=== PATIENT | male | born 1955 | race Caucasian/White ===

== ENCOUNTER 2018-10-06 08:24 | Outpatient (CLI) | payer MEDICARE, OTHER, SELFPAY ==
[2018-10-06 10:34] LABS: ALT 31 U/L (12-78); AST 23 U/L (15-37); Alkaline Phosphatase 59 U/L (46-116); Anion Gap 11.2 mmol/L (3-11); BUN 28 mg/dL (7-18); Bilirubin, Total 1.3 mg/dL (0.2-1.0); CO2 24.8 mmol/L (21.0-32.0); CREATININE 0.86 mg/dL (0.70-1.30); Calcium 8.9 mg/dL (8.5-10.1); Calculated LDL 96 mg/dL; Chloride 106 mmol/L (98-107); Cholesterol 191 mg/dL (50-200); Glucose 101 mg/dL (70-100); HDL Cholesterol 86 mg/dL (40-60); Potassium 4.1 mmol/L (3.5-5.1); Sodium 142 mmol/L (136-145); TSH (W/Ref FT4) 2.14 uIU/mL (0.358-3.74); Total Protein 6.8 g/dL (6.4-8.2); Triglyceride 45 mg/dL (30-150)
== END 2018-10-06 08:44 ==
PROVIDERS: PCP Family Medicine; Visit Provider Family Medicine
DX: E03.9 Hypothyroidism, unspecified (principal); E78.5 Hyperlipidemia, unspecified; I10 Essential (primary) hypertension
CPT/HCPCS: 36415; 80053; 80061; 83721; 84443

== ENCOUNTER 2019-11-08 02:39 | Outpatient (CLI) | payer MEDICARE, BC, SELFPAY ==
[2019-11-08 09:44] LABS: ALT 24 U/L (16-63); AST 17 U/L (15-37); Albumin 4.3 g/dL (3.4-5.0); Alkaline Phosphatase 50 U/L (46-116); Anion Gap 9.5 mmol/L (3-11); BUN 19 mg/dL (7-18); Bilirubin, Total 0.9 mg/dL (0.2-1.0); CO2 27.5 mmol/L (21.0-32.0); CREATININE 0.94 mg/dL (0.70-1.30); Calcium 9.3 mg/dL (8.5-10.1); Calculated LDL 116 mg/dL (<100); Chloride 105 mmol/L (98-107); Cholesterol 228 mg/dL (<200); Glucose 98 mg/dL (74-106); HDL Cholesterol 96 mg/dL (40-60); Potassium 4.4 mmol/L (3.5-5.1); Sodium 142 mmol/L (136-145); TSH (W/Ref FT4) 1.86 uIU/mL (0.36-3.74); Total Protein 7.2 g/dL (6.4-8.2); Triglyceride 84 mg/dL (<150)
[2019-11-09 09:04] LABS: PSA, Diagnostic 0.8 ng/mL (0.0-4.5)
== END 2019-11-08 02:59 ==
PROVIDERS: PCP Family Medicine; Visit Provider Family Medicine
DX: E03.9 Hypothyroidism, unspecified (principal); I10 Essential (primary) hypertension; G47.30 Sleep apnea, unspecified; N40.0 Benign prostatic hyperplasia without lower urinary tract symptoms
CPT/HCPCS: 36415; 80053; 80061; 84153; 84443

== ENCOUNTER 2020-12-11 02:36 | Outpatient (CLI) | payer MEDICARE, BC, SELFPAY ==
[2020-12-11 13:02] LABS: ALT 27 U/L (16-63); AST 23 U/L (15-37); Albumin 4.1 g/dL (3.4-5.0); Alkaline Phosphatase 62 U/L (46-116); Anion Gap 11.4 mmol/L (3-11); BUN 20 mg/dL (7-18); Bilirubin, Total 0.8 mg/dL (0.2-1.0); CO2 24.6 mmol/L (21.0-32.0); CREATININE 1.1 mg/dL (0.70-1.30); Calcium 8.7 mg/dL (8.5-10.1); Calculated LDL 110 mg/dL (<100); Chloride 106 mmol/L (98-107); Cholesterol 194 mg/dL (<200); Glucose 98 mg/dL (74-106); HDL Cholesterol 75 mg/dL (40-60); Potassium 4.5 mmol/L (3.5-5.1); Sodium 142 mmol/L (136-145); TSH (W/Ref FT4) 1.88 uIU/mL (0.36-3.74); Triglyceride 49 mg/dL (<150)
== END 2020-12-11 02:37 | disposition home or self-care (01) ==
LOC: LOS 02:37
PROVIDERS: PCP Family Medicine; Visit Provider Family Medicine
DX: G47.30 Sleep apnea, unspecified; E03.9 Hypothyroidism, unspecified; E78.5 Hyperlipidemia, unspecified; I10 Essential (primary) hypertension
CPT/HCPCS: 36415; 80053; 80061; 84443

== ENCOUNTER 2021-06-17 11:00 | Outpatient (CLI) | payer MEDICARE, BC, SELFPAY ==
--- NOTE | 2021-06-17 08:45 | DI.RAD_ITS ---
Exam(s) XR KNEE LT 3V AP,LAT,ROÍCO EXAM: XR KNEE LT 3V AP,LAT,ROCÍO CLINICAL HISTORY: l knee pain, M25.562. TECHNIQUE: 2D digital imaging was performed. Three views. COMPARISON: No exams were available for comparison FINDINGS: BONES: No acute fracture is present. No bony destructive lesion is seen. JOINTS: The knee is normally aligned. No joint effusion is seen. SOFT TISSUE: Normal. IMPRESSION: Normal radiographs of the left knee. DATA REPOSITORY: RADIATION DOSE DELIVERED:
--- NOTE | 2021-06-17 08:45 | DI.RAD_ITS ---
Exam(s) XR ANKLE RT 2V EXAM: XR ANKLE RT 2V CLINICAL HISTORY: r knee pain, M25.571; fell 45 years ago. TECHNIQUE: 2D digital imaging was performed. Two views. COMPARISON: No exams were available for comparison FINDINGS: BONES: No acute fracture is present. No bony destructive lesion is seen. Mild spurring at the distal tibia and malleoli. Cystic areas at the medial and lateral aspects of the talar dome. No collapse of the talar dome. JOINTS: The ankle mortise is normally aligned. SOFT TISSUE: Normal. IMPRESSION: Mild degenerative changes. Cystic areas in talar dome could be due to degenerative or related to pre vious trauma. DATA REPOSITORY: RADIATION DOSE DELIVERED:
== END 2021-06-17 11:20 ==
PROVIDERS: PCP Family Medicine; Visit Provider Family Medicine
DX: M25.562 Pain in left knee (principal); M25.571 Pain in right ankle and joints of right foot; M77.51 Other enthesopathy of right foot and ankle; M25.561 Pain in right knee
CPT/HCPCS: 73562; 73600

== ENCOUNTER → 2021-09-03 01:06 | Outpatient (CLI) | payer MEDICARE, BC, SELFPAY ==
--- NOTE | 2021-09-03 08:15 | DI.US_ITS ---
Exam(s) US LOWER EXTREMITY VENOUS RT EXAM: US LOWER EXTREMITY VENOUS RT CLINICAL HISTORY: Right calf pain and discoloration,m79.661 TECHNIQUE: Grayscale, color, and doppler imaging of the deep venous system of the lower extremity w as performed. COMPARISON: No exams were available for comparison FINDINGS: This is a positive-abnormal study. There is no DVT at and above the knee. Popliteal vein is clear. However, there is intraluminal thrombus evident in both posterior tibial veins in their proximal aspe cts just below the level of the knee. In addition, there is superficial thrombophlebitis in the mid-distal greater saphenous vein below the level of the knee. This measures approximately 15 cm length. IMPRESSION: 1. Positive study for DVT in the low right calf, as described above. There is also superficial phle bitis in the mid-distal greater saphenous vein below the knee level. This clot is 15 cm in length wi thin the saphenous. DATA REPOSITORY:
== END ==
PROVIDERS: PCP Family Medicine; Visit Provider Nurse Practitioner Family
DX: I80.01 Phlebitis and thrombophlebitis of superficial vessels of right lower extremity (principal); L98.8 Other specified disorders of the skin and subcutaneous tissue
CPT/HCPCS: 93971

== ENCOUNTER 2021-12-15 03:23 | Outpatient (CLI) | payer MEDICARE, BC, SELFPAY ==
[2021-12-15 12:13] LABS: HCT 35.1 % (40.0-50.0); HGB 10.8 g/dL (13.5-17.5); MCH 25.2 pg (27.0-33.0); MCHC 30.8 % (32.0-36.0); MCV 82 fL (80-95); MPV 10.9 fL (8.0-11.0); Platelet Count 266 10^3/uL (130-400); RBC 4.28 10^6/uL (4.36-5.78); RDW 18.8 % (11.8-14.1); RDW-SD 56.6 fL; WBC 4.88 10^3/uL (4.4-10.8)
[2021-12-15 12:32] LABS: ALT 24 U/L (16-63); AST 19 U/L (15-37); Albumin 3.8 g/dL (3.4-5.0); Alkaline Phosphatase 57 U/L (46-116); Anion Gap 8.3 mmol/L (3-11); BUN 16 mg/dL (7-18); Bilirubin, Total 0.7 mg/dL (0.2-1.0); CO2 27.7 mmol/L (21.0-32.0); CREATININE 1.1 mg/dL (0.70-1.30); Calculated LDL 99 mg/dL (<100); Chloride 106 mmol/L (98-107); Cholesterol 183 mg/dL (<200); Estimated GFR 73.12 (mL/min/1.73m2); Glucose 93 mg/dL (74-106); HDL Cholesterol 74 mg/dL (40-60); Potassium 4.3 mmol/L (3.5-5.1); Sodium 142 mmol/L (136-145); TSH (W/Ref FT4) 2.65 uIU/mL (0.36-3.74); Total Protein 7.2 g/dL (6.4-8.2); Triglyceride 50 mg/dL (<150)
[2021-12-15 18:52] LABS: Ferritin 15 ng/mL (26-388)
[2021-12-15 18:53] LABS: Iron 32 ug/dL (65-175)
[2021-12-15 20:02] LABS: Lab Add On Test DONE
== END 2021-12-15 03:24 | disposition home or self-care (01) ==
LOC: LOS 03:23
PROVIDERS: PCP Family Medicine; Visit Provider Family Medicine
DX: E03.9 Hypothyroidism, unspecified (principal); E78.5 Hyperlipidemia, unspecified; I10 Essential (primary) hypertension; D64.9 Anemia, unspecified
CPT/HCPCS: 36415; 80053; 80061; 85027; 82728; 83540; 84443

== ENCOUNTER 2022-03-10 02:07 | Outpatient (CLI) | payer MEDICARE, BC, SELFPAY ==
[2022-03-10 09:17] LABS: HGB 14.5 g/dL (13.5-17.5); MCH 30.1 pg (27.0-33.0); MCHC 33.7 % (32.0-36.0); MCV 89 fL (80-95); Platelet Count 241 10^3/uL (130-400); RBC 4.82 10^6/uL (4.36-5.78); RDW 15.8 % (11.8-14.1); RDW-SD 52.3 fL; WBC 6.45 10^3/uL (4.4-10.8)
[2022-03-10 10:10] LABS: Ferritin 41 ng/mL (26-388)
[2022-03-10 10:36] LABS: Iron 97 ug/dL (65-175)
[2022-03-10 19:15] LABS: PSA, Diagnostic 0.6 ng/mL (<=4.5)
== END 2022-03-10 02:08 | disposition home or self-care (01) ==
LOC: LBO 02:08
PROVIDERS: PCP Family Medicine; Visit Provider Family Medicine
DX: D64.9 Anemia, unspecified (principal); N40.0 Benign prostatic hyperplasia without lower urinary tract symptoms
CPT/HCPCS: 36415; 85027; 82728; 83540; 84153

== ENCOUNTER 2022-10-08 11:07 | Outpatient (CLI) | payer MEDICARE, BC, SELFPAY ==
[2022-10-09 11:45] LABS: Lyme Ab w Rflx to Lyme Confirm Negative (Negative)
[2022-10-11 15:40] LABS: Anaplasma phagocytophilum Negative (Negative); B. miyamotoi PCR Negative (Negative); Babesia divergens/MO-1 Negative (Negative); Babesia duncani Negative (Negative); Babesia microti Negative (Negative); Ehrlichia chaffeensis Negative (Negative); Ehrlichia ewingii/canis Negative (Negative); Ehrlichia muris eauclairensis Negative (Negative)
== END 2022-10-08 11:08 | disposition home or self-care (01) ==
LOC: LOS 11:08
PROVIDERS: PCP Family Medicine; Referring Provider Nurse Practitioner Family; Visit Provider Nurse Practitioner Family
DX: W57.XXXA Bitten or stung by nonvenomous insect and other nonvenomous arthropods, initial encounter; S20.361A Insect bite (nonvenomous) of right front wall of thorax, initial encounter
CPT/HCPCS: 36415; 87798; 86618

== ENCOUNTER 2022-12-07 11:32 | Outpatient (CLI) | payer MEDICARE, BC, SELFPAY ==
[2022-12-07 12:17] LABS: HCT 38.5 % (40.0-50.0); HGB 12.8 g/dL (13.5-17.5); MCHC 33.2 % (32.0-36.0); MCV 87 fL (80-95); MPV 10.3 fL (8.0-11.0); Platelet Count 280 10^3/uL (130-400); RBC 4.42 10^6/uL (4.36-5.78); RDW 14.1 % (11.8-14.1); RDW-SD 45.1 fL
[2022-12-07 13:11] LABS: ALT 24 U/L (16-63); AST 20 U/L (15-37); Albumin 4.2 g/dL (3.4-5.0); Alkaline Phosphatase 58 U/L (46-116); BUN 16 mg/dL (7-18); Bilirubin, Total 1.4 mg/dL (0.2-1.0); CREATININE 1.1 mg/dL (0.70-1.30); Calcium 9.6 mg/dL (8.5-10.1); Calculated LDL 99 mg/dL (<100); Chloride 101 mmol/L (98-107); Cholesterol 215 mg/dL (<200); Estimated GFR 72.67 (mL/min/1.73m2); Glucose 106 mg/dL (74-106); HDL Cholesterol 109 mg/dL (40-60); Potassium 4.4 mmol/L (3.5-5.1); Sodium 138 mmol/L (136-145); TSH (W/Ref FT4) 2.69 uIU/mL (0.36-3.74); Total Protein 7.7 g/dL (6.4-8.2); Triglyceride 39 mg/dL (<150)
== END 2022-12-07 11:33 | disposition home or self-care (01) ==
LOC: LOS 11:33
PROVIDERS: PCP Family Medicine; Visit Provider Family Medicine
DX: D64.9 Anemia, unspecified (principal); I10 Essential (primary) hypertension; E03.9 Hypothyroidism, unspecified; E78.5 Hyperlipidemia, unspecified
CPT/HCPCS: 36415; 80053; 80061; 85027; 84443

== ENCOUNTER 2023-05-19 01:34 | Outpatient (CLI) | payer MEDICARE, BC, SELFPAY ==
[2023-05-19 10:36] LABS: HCT 37.1 % (40.0-50.0); HGB 11.9 g/dL (13.5-17.5); MCH 26.3 pg (27.0-33.0); MCHC 32.1 % (32.0-36.0); MCV 82 fL (80-95); MPV 9.8 fL (8.0-11.0); Platelet Count 246 10^3/uL (130-400); RBC 4.52 10^6/uL (4.36-5.78); RDW 16.2 % (11.8-14.1); RDW-SD 48.8 fL; WBC 5.09 10^3/uL (4.4-10.8)
[2023-05-19 11:36] LABS: Iron 42 ug/dL (65-175)
[2023-05-19 11:50] LABS: Ferritin 13 ng/mL (26-388)
== END 2023-05-19 01:35 | disposition home or self-care (01) ==
LOC: LBO 01:35
PROVIDERS: PCP Family Medicine; Visit Provider Family Medicine
DX: D64.9 Anemia, unspecified (principal)
CPT/HCPCS: 36415; 85027; 82728; 83540

== ENCOUNTER 2023-09-15 04:46 | Outpatient (CLI) | payer MEDICARE, BC, SELFPAY ==
[2023-09-15 10:23] LABS: HCT 41.5 % (40.0-50.0); HGB 14.6 g/dL (13.5-17.5); MCH 31.1 pg (27.0-33.0); MCHC 35.2 % (32.0-36.0); MCV 89 fL (80-95); MPV 10.4 fL (8.0-11.0); Platelet Count 206 10^3/uL (130-400); RBC 4.69 10^6/uL (4.36-5.78); RDW 14.3 % (11.8-14.1); WBC 5.18 10^3/uL (4.4-10.8)
[2023-09-15 12:11] LABS: Ferritin 40 ng/mL (26-388)
[2023-09-15 12:53] LABS: Iron 116 ug/dL (65-175)
== END 2023-09-15 04:47 | disposition home or self-care (01) ==
LOC: LBO 04:46
PROVIDERS: PCP Family Medicine; Visit Provider Family Medicine
DX: D64.9 Anemia, unspecified (principal)
CPT/HCPCS: 36415; 85027; 82728; 83540

== ENCOUNTER 2023-11-17 02:31 | Outpatient (CLI) | payer MEDICARE, BC, SELFPAY ==
[2023-11-17 08:45] LABS: HCT 44.3 % (40.0-50.0); HGB 14.9 g/dL (13.5-17.5); MCH 31.6 pg (27.0-33.0); MCHC 33.6 % (32.0-36.0); MCV 94 fL (80-95); Platelet Count 189 10^3/uL (130-400); RBC 4.71 10^6/uL (4.36-5.78); RDW 13.2 % (11.8-14.1); RDW-SD 45.2 fL; WBC 4.73 10^3/uL (4.4-10.8)
[2023-11-17 09:41] LABS: Iron 98 ug/dL (65-175)
[2023-11-17 09:48] LABS: ALT 32 U/L (16-63); AST 22 U/L (15-37); Alkaline Phosphatase 61 U/L (46-116); Anion Gap 7.2 mmol/L (3-11); BUN 17 mg/dL (7-18); Bilirubin, Total 1.13 mg/dL (0.2-1.0); CO2 29.8 mmol/L (21.0-32.0); CREATININE 0.9 mg/dL (0.70-1.30); Calcium 9.2 mg/dL (8.5-10.1); Calculated LDL 107 mg/dL (<100); Chloride 105 mmol/L (98-107); Cholesterol 207 mg/dL (<200); Estimated GFR 91.88 (mL/min/1.73m2); Ferritin 54 ng/mL (26-388); Glucose 112 mg/dL (74-106); HDL Cholesterol 91 mg/dL (40-60); Potassium 4.4 mmol/L (3.5-5.1); Sodium 142 mmol/L (136-145); Total Protein 7.4 g/dL (6.4-8.2); Triglyceride 45 mg/dL (<150)
== END 2023-11-17 02:32 | disposition home or self-care (01) ==
PROVIDERS: PCP Family Medicine; Visit Provider Family Medicine
DX: D64.9 Anemia, unspecified (principal); I10 Essential (primary) hypertension; E03.9 Hypothyroidism, unspecified
CPT/HCPCS: 36415; 80053; 80061; 85027; 82728; 83540; 84439; 84443

== ENCOUNTER 2023-12-16 09:50 | Outpatient (CLI) | payer MEDICARE, BC, SELFPAY ==
[2023-12-16 21:02] LABS: PSA, Screening 2.2 ng/mL (<=6.5)
[2023-12-16 21:40] LABS: Hepatitis C Ab w Rflx HCV PCR Negative (Negative)
== END 2023-12-16 09:51 | disposition home or self-care (01) ==
LOC: LOS 09:51
PROVIDERS: PCP Family Medicine; Referring Provider Family Medicine; Visit Provider Family Medicine
DX: Z11.59 Encounter for screening for other viral diseases (principal); Z12.5 Encounter for screening for malignant neoplasm of prostate
CPT/HCPCS: 36415; 84153; 86803

== ENCOUNTER 2024-06-15 11:07 | Outpatient (REF) | payer MEDICARE, BC, SELFPAY ==
--- NOTE | 2024-06-15 10:30 | SKI_PTH ---
PATIENT: Tom Martinez LOC: [facility]#:[id number] AGE/SX: 68/M ROOM: RE06/15/[address]: Aide Leija MD, DC : 1955 BED: DIS: 06/15/2024 SPEC #: [id number] RECD: 06/15/24 12:46 STATUS: MARIUM REQ #: [id number] ARLET: 06/15/24 10:[address]: Aide Leija DEPT: Surgical Specimen RECD BY: Negrita Walker Tissues: 1 - SKIN BIOPSY(SHAVE/PUNCH) Procedures: SKIN LEVEL 4 Comments: [id number]
== END 2024-06-15 11:08 | disposition home or self-care (01) ==
LOC: NCHCN 11:07
PROVIDERS: PCP Family Medicine; Visit Provider Family Medicine
DX: C43.62 Malignant melanoma of left upper limb, including shoulder (principal)
CPT/HCPCS: 88305

== ENCOUNTER → 2024-06-21 09:18 | Outpatient (BNVA) | payer MEDICARE, BC, SELFPAY | PROVIDERS: PCP Family Medicine; Referring Provider Family Medicine; Visit Provider Student in an Organized Health Care Education/Training Program | DX: C43.9 Malignant melanoma of skin, unspecified (principal) | CPT/HCPCS: 99215 ==

== ENCOUNTER 2024-07-12 06:27 | Day surgery (SDC) | payer MEDICARE, BC, SELFPAY ==
--- NOTE | 2024-07-11 21:28 | W.ANESPRE ---
General Info Height: 5 ft 5 in Weight: 71.384 kg Body Mass Index (BMI): 26.2 Surgical Procedure: Operation Date: 07/12/24 10:55 Proposed Procedure Side Surgeon p Upper Extremity Excision of Melanoma w/Sentinal Lymph Node Biopsy Left Javier Pisano MD s Excision Lesion Upper Chest Left Javier Pisano MD Meds Allergies and Home Medications Allergies Allergy/AdvReac Type Severity Reaction Status Date / Time No Known Drug Allergies Allergy None Verified 07/12/24 06:56 Home Medication ?Medication ?Instructions ?Recorded amlodipine 5 mg tablet 5 mg PO DAILY #90 tab-caps 12/16/23 atorvastatin 40 mg tablet (Lipitor) 40 mg PO HS #90 tab-caps 12/16/23 levothyroxine 50 mcg tablet 50 mcg PO DAILY #90 tab-caps 12/16/23 Current Visit Medications: Current Medications Generic Name Dose Route Start Last Admin Trade Name Freq PRN Reason Stop Dose Admin Ringer's Solution 1,000 mls @ 80 mls/hr 07/12/24 06:00 IV 07/12/24 23:59 INFUSION TAYA IV Miscellaneous Supplies 1 each 07/12/24 06:00 Iv Access IV 07/12/24 23:59 DIRECTED TAYA Sodium Chloride 0 ml 07/12/24 06:00 Normal Saline Flush 10 Ml Syr IV 07/12/24 23:59 PRN PRN Sodium Chloride 0 ml 07/12/24 06:00 Normal Saline 10 Ml Vial IJ 07/12/24 23:59 DIRECTED PRN Sterile Water 0 ml 07/12/24 06:00 Water,Injection,Sterile 10 Ml Vial IJ 07/12/24 23:59 DIRECTED PRN PFSH Active Problems Active Problems: Problem Status Onset Code Melanoma Acute C43.9 Bilateral sensorineural hearing loss Acute H90.3 Anemia Chronic D64.9 Right ankle pain Acute M25.571 Left knee pain Acute M25.562 Annual physical exam Acute 08/23/14 Z00.00 Cervical pain Chronic 07/26/17 M54.2 Essential hypertension Chronic 01/12/17 I10 Hyperlipidemia Chronic 05/31/12 E78.5 Hypothyroidism Chronic 08/10/13 E03.9 Organic sleep apnea, 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 states it disappeared and is no longer an issue Pigmented skin lesion suspicious for malignant neoplasm (10/25/17) Organic sleep apnea, unspecified Hypothyroidism Essential hypertension Surgical History Surgical History Colonoscopy - MAC (02/03/17) Tobacco Smoking/Tobacco Use Status: Never Passive smoking exposure: No Second hand exposure: Yes Alcohol Alcohol Intake: current Alcohol intake frequency: a few times a week Alcohol type: beer Substance Use Substance use: Never Substance use type: does not use Vital Signs and Lab Results Vital Signs Most Recent Vital Signs in EMR: Temp Pulse Resp BP Pulse Ox 36.7 C 66 16 134/86 96 07/12/24 06:49 07/12/24 06:49 07/12/24 06:49 07/12/24 06:49 07/12/24 06:49 Lab Results Blood Type / Crossmatch: No Data to Display Complete Blood Count: No Data to Display Complete Metabolic Panel: No Data to Display Liver Function Panel: No Data to Display Coagulation Panel: No Data to Display Cardiac Panel: No Data to Display Arterial Blood Gas: No Data to Display Venous Blood Gas: No Data to Display Pancreas Panel: No Data to Display Thyroid Panel: No Data to Display Infectious Disease: No Data to Display Blood Cultures: No Data to Display Toxicology Panel: No Data to Display Anesthesia Assessment and Plan Anesthesia History Personal History: No History of Anesthesia Complications Family History: No Family History of Anesthesia Complications Implantable Cardiac Device Does patient have a Pacemaker or an ICD?: No Anesthesia Plan Resuscitation Status: Full Code Anesthesia Technique: General Anesthesia Airway Planned: LMA Monitors Used: Standard Monitors Preoperative Comments:: 68 yo male for lesion excision. Sig PMHx: HTN (amlodipine), KANDI, hypothyroid (on replacement). never smoker, occ EtOH. Previous Anes: - colo, prop, natural airway, no issues.
[2024-07-12 06:49] VITALS: BP 134/86; PULSE 66; RESP 16; TEMP 36.7; O2SAT 96
[2024-07-12] MEDS: Lactated Ringers 1,000 ML 80 ML IV (07:10)
--- NOTE | 2024-07-12 07:15 | DI.NM_ITS ---
Exam(s) NM SENTNODE INJ AND SCAN EXAM: NM SENTNODE INJ AND SCAN CLINICAL HISTORY: LEFT anxillary sentinel node bx, malig melanoma,C43.9. TECHNIQUE: Injected Dose: 1 mCi Tc-99m filtered sulfur colloid injected in the posterior left upper arm by Dr. Pisano. Images: Immediate through 15 minutes. COMPARISON: No exams were available for comparison FINDINGS: [place] node was identified and marked on the skin. IMPRESSION: [place] node was identified and marked. DATA REPOSITORY:
--- NOTE | 2024-07-12 12:59 | W.ANESPRE ---
General Info Date of Service Date Performed: 07/12/24 Height: 5 ft 5 in Weight: 73.6 kg Body Mass Index (BMI): 27.0 Surgical Procedure: Operation Date: 07/12/24 10:55 Proposed Procedure Side Surgeon p Upper Extremity Excision of Melanoma w/Sentinal Lymph Node Biopsy Left Javier Pisano MD s Excision Lesion Upper Chest Left Javier Pisano MD Meds Allergies and Home Medications Allergies Allergy/AdvReac Type Severity Reaction Status Date / Time No Known Drug Allergies Allergy None Verified 07/12/24 06:56 Home Medication ?Medication ?Instructions ?Recorded amlodipine 5 mg tablet 5 mg PO DAILY #90 tab-caps 12/16/23 atorvastatin 40 mg tablet (Lipitor) 40 mg PO HS #90 tab-caps 12/16/23 levothyroxine 50 mcg tablet 50 mcg PO DAILY #90 tab-caps 12/16/23 Current Visit Medications: Current Medications Generic Name Dose Route Start Last Admin Trade Name Freq PRN Reason Stop Dose Admin Ringer's Solution 1,000 mls @ 80 mls/hr 07/12/24 06:00 07/12/24 07:10 IV 07/12/24 23:59 80 mls/hr INFUSION TAYA Administration IV Miscellaneous Supplies 1 each 07/12/24 06:00 Iv Access IV 07/12/24 23:59 DIRECTED TAYA Sodium Chloride 0 ml 07/12/24 06:00 Normal Saline Flush 10 Ml Syr IV 07/12/24 23:59 PRN PRN Sodium Chloride 0 ml 07/12/24 06:00 Normal Saline 10 Ml Vial IJ 07/12/24 23:59 DIRECTED PRN Sterile Water 0 ml 07/12/24 06:00 Water,Injection,Sterile 10 Ml Vial IJ 07/12/24 23:59 DIRECTED PRN PFSH Active Problems Active Problems: Problem Status Onset Code Melanoma Acute C43.9 Bilateral sensorineural hearing loss Acute H90.3 Anemia Chronic D64.9 Right ankle pain Acute M25.571 Left knee pain Acute M25.562 Annual physical exam Acute 08/23/14 Z00.00 Cervical pain Chronic 07/26/17 M54.2 Essential hypertension Chronic 01/12/17 I10 Hyperlipidemia Chronic 05/31/12 E78.5 Hypothyroidism Chronic 08/10/13 E03.9 Organic sleep apnea, 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 states it disappeared and is no longer an issue Pigmented skin lesion suspicious for malignant neoplasm (10/25/17) Organic sleep apnea, unspecified Hypothyroidism Essential hypertension Surgical History Surgical History Colonoscopy - MAC (02/03/17) Tobacco Smoking/Tobacco Use Status: Never Passive smoking exposure: No Second hand exposure: Yes Alcohol Alcohol Intake: current Alcohol intake frequency: 3 or more drinks per day Alcohol type: beer Substance Use Substance use: Never Substance use type: does not use Vital Signs and Lab Results Vital Signs Most Recent Vital Signs in EMR: Most Recent Vital Signs Temp Pulse Resp BP Pulse Ox 36.7 C 66 16 134/86 96 07/12/24 06:49 07/12/24 06:49 07/12/24 06:49 07/12/24 06:49 07/12/24 06:49 Lab Results Blood Type / Crossmatch: No Data to Display Complete Blood Count: No Data to Display Complete Metabolic Panel: No Data to Display Liver Function Panel: No Data to Display Coagulation Panel: No Data to Display Cardiac Panel: No Data to Display Arterial Blood Gas: No Data to Display Venous Blood Gas: No Data to Display Pancreas Panel: No Data to Display Thyroid Panel: No Data to Display Infectious Disease: No Data to Display Blood Cultures: No Data to Display Toxicology Panel: No Data to Display Anesthesia Assessment and Plan Anesthesia History Personal History: No History of Anesthesia Complications Family History: No Family History of Anesthesia Complications Exercise Tolerance Exercise Tolerance: Metabolic Equivalents>4 Cardiac & Pulmonary Exam Cardiac Exam: Normal S1/S2 Heart Sounds Pulmonary Exam: Clear Bilateral Breath Sounds Implantable Cardiac Device Does patient have a Pacemaker or an ICD?: No Airway Exam Known Difficult Airway: No Mallampati Class: 2 Mouth Opening: Normal (> 3cm) Thyromental Distance: Greater than 3 cm Neck Range of Motion: Full ROM Neck Circumference: Normal Teeth Condition: Normal Dentition ASA Classification ASA Score: ASA 2 Emergency Case?: No NPO Status NPO Status: NPO Clears >2 hours, Solids >8 hours Anesthesia Plan Resuscitation Status: Full Code Anesthesia Technique: MAC Anesthesia Airway Planned: Natural Airway Monitors Used: Standard Monitors
[2024-07-12 13:20] VITALS: BMI 27.0
--- NOTE | 2024-07-12 14:25 | LYM_PTH ---
PATIENT: Tom Martinez LOC: [facility] U#:[id number] AGE/SX: 68/M ROOM: RE07/12/[address]: Javier Pisano : 1955 BED: DIS: 07/12/2024 SPEC #: [id number] RECD: 07/13/24 12:39 STATUS: MARIUM RE #: [id number] ARLET: 07/12/24 14:[address]: Javier Pisano DEPT: Surgical Specimen RECD BY: Negrita Walker ENTERED: 07/13/24 12:42 SP TYPE: LYM OTHR DR: Aide Leija MD, DC Tissues: 1 - SKIN BIOPSY(SHAVE/PUNCH) 2 - LYMPH NODE BIOPSY 3 - LYMPH NODE BIOPSY Procedures: IMMUNOPEROXIDASE STAIN GROSS AND MICRO LEVEL 5 SKIN LEVEL 4 Comments: [id number] (ALL SPECIMENS RADIOACTIVE)
[2024-07-12] MEDS: Bupivacaine 0.5% Pres-Free 30 ML VIAL (15:07)
--- NOTE | 2024-07-12 15:16 | PDOC.DSDIS_ITS ---
Date of service: 07/12/24 Discharge Plan Disposition Patient Disposition: Home Condition: Good Discharge Details Attending Provider: Javier Pisano Primary Care Provider: Aide Leija Home Meds and New Rx's Prescriptions: No Action atorvastatin [Lipitor] 40 mg tablet 40 mg PO HS Qty: 90 4RF levothyroxine 50 mcg tablet 50 mcg PO DAILY Qty: 90 12RF amlodipine 5 mg tablet 5 mg PO DAILY Qty: 90 11RF Discharge Instructions Additional Instructions: INSTRUCTIONS: Incisions: Keep clean and dry but they do not need to be covered. It is okay to shower but no tub bathing for 1 week. You can peel the glue off after 1 week. Activity: As tolerated. Be careful using your left arm to do strenuous activities for the next few weeks. However, there are no restrictions. Listen to your body. Diet: Regular diet as tolerated. Medications: Resume all of your usual/regular home medications. Follow-up: Call and schedule an a follow-up appointment in the next couple weeks Pain control: Take Tylenol, 1000 mg, every 6 hours on a schedule for the next 3 days. You can use ibuprofen in addition to Tylenol if needed. Ice can be used as needed. Overall: Symptoms should not be worsening. If you have any difficulty breathing or you have return of symptoms of brought you to the hospital or your pain is otherwise worsening each day and you should call the doctor's office or come into the hospital to be checked out. Stand Alone Forms: Anesthesia Discharge Inst., Jeison Arora ([facility]) Referrals: Javier Pisano MD [ [facility] STAFF PHYSICIAN] - 08/10/24 11:30 am Diet:: As Tolerated
--- NOTE | 2024-07-12 15:16 | W.PM.OP ---
Operative Note Operative Note Refer to Anesthesia Record Procedure Description: Procedures performed: 1. Wide local excision of cutaneous melanoma - LUE 2. Left axillary sentinal lymph node biopsy Location: Patient's left proximal arm Indication: Punch biopsy-proven melanoma. Stage 1b due to depth. Patient elected to have a SLN bx performed after discussing possible risk of LN metastasis. Specimen: 1. Left UE melanoma - stitch lees 12:00 (proximal apex) 2. Left axillary sentinal lymph node 3. LEFT axillary sentinal lymph node #2 Blood loss: Minimal Size of specimen: Elliptical dimensions are 5 cm x 3 cm and it is deep to the subcutaneous fat. FINDINGS: The melanoma was excised with 1cm measured margins in elliptical fashion. Sentinal nodes mapped and were removed in usual fashion. Complications: None Procedure in detail: The patient gave written consent after discussing the risks, benefits and the indication for the procedure. The sites were prepped and draped in sterile fashion. We performed a timeout and when we were all in agreement we began the procedure. The radiotracer had been injected in Nuclear Medicine and the LN mapping had been performed. In the left UE, local anesthetic was injected. A #15 blade was used to sharply excise the lesion with clear, measured 1cm, clinical margins in an elliptical fashion. It was sharply excised off the subcutaneous fat. A stitch was placed to dario the 12:00 margin - the apex that is proximal. The specimen was passed off the table and placed in formalin. Hemostasis was achieved with pressure. The wound was closed in layers. Sterile surgical glue was used as a dressing. The patient tolerated the procedure well. Next we turned our attention to the left axilla. A curvilinear incision was made after local anesthetic and electrocautery was used to dissect down following the probe to the radioactive LN. I used the Ligasure to circumferentially mobilize the LN and then I excised it. After removing it, it was confirmed to be the first LN, but a second LN remained active in the axilla and I dissected further and removed this LN, identified by the probe as well, in the same fashion. Hemostasis was excellent. The wound was closed in layers. Sterile surgical glue was placed on top. The patient tolerated the procedure well and was taken to the PACU in HD stable condition. Date of Procedure: 07/12/24
[2024-07-12 15:17] VITALS: BP 138/76; PULSE 55; RESP 16; TEMP 36.4; O2SAT 96
--- NOTE | 2024-07-12 15:39 | W.ANESPOSTOP ---
Postoperative Evaluation Date, Time and Location Date Performed: 07/12/24 Time Performed: 15:20 Patient Location: Day Surgery Unit Vital Signs Most Recent Imported Vital Signs: Most Recent Vital Signs Temp Pulse Resp BP Pulse Ox 36.4 C L 55 L 16 138/76 96 07/12/24 15:17 07/12/24 15:17 07/12/24 15:17 07/12/24 15:17 07/12/24 15:17 Pain Score Most Recent Pain Score: Most Recent Pain Score Pain Level 0 07/12/24 15:17 Assessment Mental Status: Awake (Alert & Oriented to Patient Baseline) Airway and Respiratory Function: Patent airway with normal (patient baseline) respiratory exam Cardiovascular Function: Hemodynamically Stable Hydration Status: Adequately Hydrated Nausea & Vomiting: No Nausea or Vomiting Pain: Pt. Denies Any Pain Peripheral Nerve Block: Patient did not receive a nerve block
[2024-07-12 15:56] VITALS: BP 126/82; PULSE 68; RESP 18; TEMP 36.1; O2SAT 95
== END 2024-07-12 16:05 | disposition home or self-care (01) ==
LOC: SUR 06:27
PROVIDERS: PCP Family Medicine; Visit Provider Student in an Organized Health Care Education/Training Program
PROC: (CPT 11606; principal; 2024-07-12 10:45)
DX: C43.62 Malignant melanoma of left upper limb, including shoulder (principal)
CPT/HCPCS: 11606; 38525; 12032; 88305; 78195; 88307; 88361; J0665; J1100; J2003; J2250; J2371; J2401; J2405; J2704; J3010

== ENCOUNTER → 2024-08-10 11:24 | Outpatient (BNVA) | payer MEDICARE, BC, SELFPAY | PROVIDERS: PCP Family Medicine; Referring Provider Family Medicine; Visit Provider Student in an Organized Health Care Education/Training Program | DX: Z48.89 Encounter for other specified surgical aftercare (principal) | CPT/HCPCS: 99024 ==

== ENCOUNTER 2024-10-18 10:31 | Outpatient (CLI) | payer MEDICARE, BC, SELFPAY ==
--- NOTE | 2024-10-18 10:15 | DI.RAD_ITS ---
Exam(s) XR SHOULDER RT COMPLETE 2+V EXAM: XR SHOULDER RT COMPLETE 2+V CLINICAL HISTORY: right shoulder pain. TECHNIQUE: 2D digital imaging was performed. Two views. COMPARISON: No exams were available for comparison FINDINGS: BONES: No acute fracture is present. No bony destructive lesion is seen. JOINTS: No dislocation present. Mild narrowing of the glenohumeral joint. Mild spurring at the glenoid and AC joint. Some spurring at the undersurface of the acromion. SOFT TISSUE: Calcifications above the humeral head consistent with calcific tendinosis. IMPRESSION: Mild degenerative changes and calcific tendinosis. DATA REPOSITORY: RADIATION DOSE DELIVERED:
== END 2024-10-18 10:32 | disposition home or self-care (01) ==
LOC: DIORS 10:31
PROVIDERS: PCP Family Medicine; Referring Provider Family Medicine; Visit Provider Student in an Organized Health Care Education/Training Program
DX: M25.511 Pain in right shoulder (principal); M19.011 Primary osteoarthritis, right shoulder; M67.921 Unspecified disorder of synovium and tendon, right upper arm; I10 Essential (primary) hypertension
CPT/HCPCS: 99213; 73030

== ENCOUNTER 2024-12-28 04:19 | Outpatient (CLI) | payer MEDICARE, BC, SELFPAY ==
--- NOTE | 2024-12-28 06:15 | DI.MRI_ITS ---
Exam(s) MR UPPER JOINT RT WO EXAM: MR UPPER JOINT RT WO CLINICAL HISTORY: R SHOULDER PAIN, LIPOMA(PLEASE INCLUDE ON MRI),tendinopathy rt biceps tendo TECHNIQUE: Multiplanar multisequence MRI of the shoulder was performed. COMPARISON: CR XR SHOULDER RT COMPLETE 2+V from 10/18/2024 FINDINGS: SOFT TISSUES: On the posterior aspect of the shoulder there is benign-appearing lipoma in the subcutaneous tissues which measures 4.4 cm length by 1.5 cm thick by 2.5 cm wide. There is a single thin internal septation. This has benign appearance. MARROW:There is no evidence of fracture, Hill-Sachs deformity, nor ominous osseous lesions. GLENOHUMERAL JOINT: Mild degenerative changes. No osteophytes nor joint effusion nor loose intra-articular bodies. There are no degenerative subarticular cysts in the osseous glenoid. There are a few degenerative subarticular cysts and surrounding edema in the lateral humeral head greater tuberosity region. ROTATOR CUFF MECHANISM: AC JOINT/ACROMIUM: There are moderate degenerative changes in the AC joint.. There is no evidence of os acromiale. Supraspinatus: There is tendinitis signal. There appears to be partial thickness tearing of the supraspinatus just above the greater tuberosity. There is a small amount of fluid in the subacromial bursa. No muscle atrophy. Infraspinatus: Mild insertional tendinitis. No tear. No atrophy. Teres Minor: Intact. No evidence of tear nor muscle atrophy. Subscapularis/anterior cuff: Mild focal increased signal in the tendon just anterior to the lesser tuberosity. No significant tear. BICEPS TENDON: Exhibits normal position within the intertubercular groove. No evidence of tear. Small amount of fluid in the tendon sheath. LABRUM: The superior labrum is thin but without a definable tear. Posterior labrum is intact. Anterior labrum appears intact. QUADRILATERAL SPACE: No evidence of mass in the region of the axillary nerve and dorsal circumflex humeral vessels. Visualized triceps muscle at this level appears unremarkable. IMPRESSION: 1. There is partial-thickness tearing of the supraspinatus tendon. There is mild edema and fluid in the overlying subacromial bursa. Suspect that this may be an element of reactive bursitis but cannot exclude a small relatively occult full-thickness tear. There is no retraction and there is no muscle atrophy. There are significant degenerative changes in the AC joint. 2. There are mild tendinitis findings in the infraspinatus and subscapularis. No atrophy. 3. The long head biceps tendon appears intact and nondisplaced. The superior labrum appears thin but there are no obvious labral tears evident. No evidence of paralabral cyst. 4. Minimal degenerative changes in the glenohumeral joint. No joint effusion. There is, however, edema in the lateral aspect of the humeral head greater tuberosity region as well as few small subarticular cysts at this level. There is a soft tissue mass in the cutaneous tissues over the posterior aspect of the shoulder which has appearance of benign lipoma measuring approximately 4.4 x 1.5 x 2.5 cm. DATA REPOSITORY:
== END 2024-12-28 04:39 ==
PROVIDERS: PCP Family Medicine; Visit Provider Student in an Organized Health Care Education/Training Program
DX: M19.011 Primary osteoarthritis, right shoulder (principal)
CPT/HCPCS: 73221

== ENCOUNTER 2024-12-29 04:41 | Outpatient (CLI) | payer MEDICARE, BC, SELFPAY ==
[2024-12-29 09:24] LABS: ALT 32 U/L (16-63); AST 24 U/L (15-37); Albumin 4.0 g/dL (3.4-5.0); Alkaline Phosphatase 57 U/L (46-116); Anion Gap 8.4 mmol/L (3-11); BUN 13 mg/dL (7-18); Bilirubin, Total 1.8 mg/dL (0.2-1.0); CO2 30.6 mmol/L (21.0-32.0); Calcium 9.1 mg/dL (8.5-10.1); Calculated LDL 110 mg/dL (<100); Chloride 104 mmol/L (98-107); Cholesterol 209 mg/dL (<200); Estimated GFR 91.31 (mL/min/1.73m2); Glucose 102 mg/dL (74-106); HDL Cholesterol 88 mg/dL (>or=40); Potassium 4.3 mmol/L (3.5-5.1); Sodium 143 mmol/L (136-145); TSH (W/Ref FT4) 2.03 uIU/mL (0.36-3.74); Total Protein 7.3 g/dL (6.4-8.2); Triglyceride 57 mg/dL (<150)
== END 2024-12-29 04:42 | disposition home or self-care (01) ==
PROVIDERS: PCP Family Medicine; Visit Provider Family Medicine
DX: I10 Essential (primary) hypertension (principal); E03.9 Hypothyroidism, unspecified
CPT/HCPCS: 36415; 80053; 80061; 84443

== ENCOUNTER → 2025-01-03 13:50 | Outpatient (BNVA) | payer MEDICARE, BC, SELFPAY | PROVIDERS: PCP Family Medicine; Referring Provider Family Medicine; Visit Provider Student in an Organized Health Care Education/Training Program | DX: M19.011 Primary osteoarthritis, right shoulder (principal); M67.921 Unspecified disorder of synovium and tendon, right upper arm; M75.101 Unspecified rotator cuff tear or rupture of right shoulder, not specified as traumatic; D17.21 Benign lipomatous neoplasm of skin and subcutaneous tissue of right arm | CPT/HCPCS: 99213 ==

== ENCOUNTER 2025-02-13 03:24 | Outpatient (CLI) | payer MEDICARE, BC, SELFPAY ==
[2025-02-13 09:22] LABS: ALT 24 U/L (10-49); AST 24 U/L (<34); Albumin 4.5 g/dL (3.4-5.0); Alkaline Phosphatase 62 U/L (46-116); Anion Gap 6.1 mmol/L (3-11); BUN 14 mg/dL (9-23); Bilirubin, Direct 0.3 mg/dL (<=0.3); Bilirubin, Total 1.30 mg/dL (0.2-1.2); CO2 30.9 mmol/L (20.0-31.0); Calcium 9.8 mg/dL (8.3-10.6); Chloride 106 mmol/L (98-107); Glucose 106 mg/dL (74-106); Potassium 4.8 mmol/L (3.5-5.1); Sodium 143 mmol/L (136-145); Total Protein 7.1 g/dL (5.7-8.2)
== END 2025-02-13 03:25 | disposition home or self-care (01) ==
LOC: LBO 03:24
PROVIDERS: PCP Family Medicine; Visit Provider Family Medicine
DX: I10 Essential (primary) hypertension (principal); R17 Unspecified jaundice
CPT/HCPCS: 36415; 80053; 82248

== ENCOUNTER → 2025-03-01 00:23 | Outpatient (CLI) | payer MEDICARE, BC, SELFPAY ==
--- NOTE | 2025-03-01 06:45 | DI.US_ITS ---
Exam(s) US ABDOMEN LIMITED EXAM: US ABDOMEN LIMITED CLINICAL HISTORY: elevated bilirubin,r17,unspecified jaundice TECHNIQUE: Ultrasound abdomen performed using standard protocol. COMPARISON: None FINDINGS: There is no ascites evident. LIVER: There are no hepatic lesions evident nor dilatation of intrahepatic ducts. GALLBLADDER/BILIARY: There are no gallstones. No gallbladder wall edema nor pericholecystic fluid. The common hepatic duct isnot dilated, measuring 2mm at the level of garrick hepatis. PANCREAS: There is no evidence of pancreatic mass nor dilatation of the pancreatic duct. RIGHT KIDNEY:No evidence of solid mass, calculus, nor hydronephrosis. There is a cyst in the superior pole of the right kidney measuring 2 x 2.5 cm. This benign cyst does not require further imaging workup. IMPRESSION: 1. No evidence of cholelithiasis nor dilatation of the biliary tree. 2. No other significant ultrasound findings in the right upper quadrant. 3. There is no ascites. DATA REPOSITORY:
== END ==
LOC: DI 00:23
PROVIDERS: PCP Family Medicine; Visit Provider Family Medicine
DX: R17 Unspecified jaundice (principal)
CPT/HCPCS: 36415; 80053; 76705; 82248

== ENCOUNTER 2025-03-01 01:49 | Outpatient (CLI) | payer MEDICARE, BC, SELFPAY ==
[2025-03-01 11:33] LABS: ALT 21 U/L (10-49); AST 23 U/L (<34); Albumin 4.6 g/dL (3.2-5.0); Alkaline Phosphatase 57 U/L (46-116); Anion Gap 5.8 mmol/L (3-11); BUN 13 mg/dL (9-23); Bilirubin, Direct 0.3 mg/dL (<=0.3); Bilirubin, Total 1.30 mg/dL (0.2-1.2); CO2 31.2 mmol/L (20.0-31.0); Calcium 9.7 mg/dL (8.3-10.6); Chloride 106 mmol/L (98-107); Glucose 104 mg/dL (74-106); Potassium 4.5 mmol/L (3.5-5.1); Sodium 143 mmol/L (136-145); Total Protein 7.4 g/dL (5.7-8.2)
== END 2025-03-01 01:50 | disposition home or self-care (01) ==
LOC: LBO 01:49
PROVIDERS: PCP Family Medicine; Visit Provider Family Medicine
DX: R17 Unspecified jaundice (principal); I10 Essential (primary) hypertension
CPT/HCPCS: 36415; 80053; 82248